=== PATIENT | female | born 1930 | race Caucasian/White ===

== ENCOUNTER 2016-06-09 13:49 | Emergency (ER) | payer OTHER ==
[~2016-06-09] VITALS: Ht 154.9 cm; Wt 79.8 kg
[~2016-06-09 13:49] MED LIST: ALDACTONE50 M1 PO; AUGMENTIN 875 M1 TAB PO; LEVAQUIN500 MG PO; TESSALON PERLE100 M1 PO
[2016-06-09 14:07] VITALS: BP 162/81
--- NOTE | 2016-06-09 14:35 | ED INFLUENZA/URI COMPLAINT ---
History of Present Illness General Chief Complaint: Upper Respiratory Sx/Fever Stated Complaint: COUGH,CONGESTION,SORE THROAT Source: patient, family Exam Limitations: no limitations Vital Signs & Intake/Output Vital Signs & Intake/Output Vital Signs Date Time Temp Pulse Resp B/P Pulse O2 O2 Flow FiO2 Ox Delivery Rate 06/09 1407 99.4 106 20 162/81 93 Room Air Allergies Coded Allergies: spironolactone (Severe, HIVES FROM GENERIC VERSION ONLY 08/06/15) erythromycin base (UNKNOWN 08/06/15) nifedipine (UNKNOWN 08/06/15) Uncoded Allergies: INTEX (UNKNOWN 03/06/13) Reconcile Medications Albuterol Sulfate (Proair Hfa) 90 MCG HFA.AER.AD 2 PUF INH Q4-6 PRN PRN WHEEZING Benzonatate (Tessalon Perle) 100 MG CAPSULE 1 TAB PO TID COUGH Levofloxacin (Levaquin) 500 MG TABLET 1 TAB PO DAILY BRONCHITIS Prednisone 20 MG TABLET 2 TAB PO DAILY BRONCHITIS Spironolactone (Aldactone) 50 MG TABLET 1 TAB PO DAILY UNKNOWN (Reported) Triage Note: 86 Y/O FEMALE C/O SOB X 1 WEEK; STATES SHE HAS A "DRY COUGH" AND "ITS HARD TO TAKE A DEEP BREATH BECAUSE ITS SO DRY". C/O "CLEAR" DRAINAGE FROM NOSE AND NASAL CONGESTION. PT REPORTS HX BRONCHITIS AND STATES "THIS IS THE SAME". SAT 93% RA, NO DISTRESS NOTED. TEMP 99.4 Triage Nurses Notes Reviewed? yes HPI: 86-year-old female here with her daughter with complaints of 3 or 4 days of nasal congestion, clear rhinorrhea, dry cough. States it is getting worse, she has pressure in her sinuses. Her daughter who is with her also feel sick with same and positive sick contact with her great-grandsons having a upper respiratory illness as well. Patient states that she gets rhonchi this/ sinusitis every year and states she takes an antibiotic for this and symptoms resolved shortly. She has complaints of mild chills this morning and mild generalized malaise. She denies any known fever, she has no production with the cough, she has a good appetite. She has no chest pain. (BETTE AMIN,SHARON) Past History Travel History Traveled to [place] past 21 day No Medical History Any Pertinent Medical History? see below for history Neurological: NONE EENT: NONE Cardiovascular: hypertension Respiratory: NONE Gastrointestinal: NONE Hepatic: NONE Renal: NONE Musculoskeletal: SCOLIOSIS Psychiatric: NONE Endocrine: DM Surgical History Surgical History: N Psychosocial History What is your primary language Argentine Tobacco Use: Never used Family History Hx Contributory? No (SHARON PICKARD) Review of Systems Review of Systems Constitutional: Reports: see HPI. EENTM: Reports: see HPI. Respiratory: Reports: see HPI. Cardiovascular: Reports: no symptoms. GI: Reports: no symptoms. Genitourinary: Reports: no symptoms. Musculoskeletal: Reports: no symptoms. Skin: Reports: no symptoms. Neurological/Psychological: Reports: no symptoms. Hematologic/Endocrine: Reports: no symptoms. Immunologic/Allergic: Reports: no symptoms. All Other Systems: Reviewed and Negative (SHARON PICKARD) Physical Exam Physical Exam General Appearance: well developed/nourished Ears, Nose, Throat: POSITIVE CLEAR RHINORRHEA, TENDERNESS OF THE MAXILLARY SINUS pHARYNX IS CLEAR, POSITIVE POSTNASAL DRIP Comments: Well-developed well-nourished no apparent distress. HEENT: Atraumatic, extraocular motion intact Neck: Supple, no lymphadenopathy Back: Nontender Respiratory: No respiratory distress Lungs with diminished breath sounds bilaterally. Heart: Regular rate and rhythm no murmur. Extremities: Chronic bilateral lower extremity edema, full range of motion Neuro: Alert and oriented x3 Psych: Mood affect normal, normal memory normal judgment. Skin: Warm and dry, no rash on exposed skin Core Measures Severe Sepsis Present: No Septic Shock Present: No (SHARON PICKARD) Progress Differential Diagnosis: influenza, meningitis, neutropenia, otitis, pneumonia, pharyngitis, sinusitis Plan of Care: Orders Procedure Date/time Status XRY-CHEST XRAY, PA AND LATERAL 06/09 1419 Active Diagnostic Imaging: Viewed by Me: Radiology Read. Discussed w/RAD: Radiology Read. CXR Impression: PATIENT: YVAN DELUCA PRESENT AGE: 86 PATIENT ACCOUNT NO: [id number] : 31 LOCATION: [facility] ORDERING PHYSICIAN: SHARON AMIN SERVICE DATE: 06/09/16 EXAM TYPE: RAD - XRY-CHEST XRAY, PA AND LATERAL EXAMINATION: XR CHEST CLINICAL INFORMATION: Cough. Bronchitis. COMPARISON: CXR from 06/19/2014 and 09/09/2015 TECHNIQUE: PA and lateral views of the chest were obtained. FINDINGS: The medial left lower lobe remains difficult to evaluate due to the severe dextroscoliosis. A linear opacity adjacent to the pericardiac fat pad is compatible with atelectasis. The lateral radiograph shows blunted appearance of the left posterior costophrenic sulcus, unchanged compared to 06/19/2014, and likely related to the spinal deformity. Cardiac silhouette is borderline enlarged. There is atherosclerotic calcification of the aorta. IMPRESSION: 1. Severe dextroscoliosis of the thoracic spine. 2. Mild atelectasis at left lung base, similar appearance compared to 06/19/2014 and 09/09/2015. No acute cardiopulmonary findings. DICTATED BY: JARRETT WILKINS MD DATE/TIME DICTATED:06/09/161508 ASIAN STUDIES PROFESSOR:RICHARD Initial ED EKG: none Comments: Chest x-ray is unremarkable for infiltrate however after reviewing myself, it is a limited study due to her severe scoliosis and I am concerned for possible early pneumonia. At the very least she has a sinusitis and we'll treat her with antibiotics, she requires close follow-up with primary care doctor or returning here with worsening symptoms (SHARON PICKARD) Departure Departure Disposition: HOME OR SELF CARE Condition: Stable Clinical Impression Primary Impression: Bronchitis Referrals: COMPA DIEZ DO (PCP/Family) Referred to [facility] as new patient No Additional Instructions: TAKE ANTIBIOTICS DIRECTED. USE INHALER FOR WHEEZING AND SHORTNESS OF BREATH. TAKE PREDNISONE FOR LUNG INFLAMMATION. RETURN IF YOU ARE FEELING WORSENING FLU LIKE ILLNESS, FEVER OR DIFFICLUTY BREATHING. FOLLOW UP WITH YOUR DOCTOR THIS WEEK FOR RE EVALUATION. Departure Forms: Customer Survey General Discharge Information Prescriptions: Current Visit Scripts Levofloxacin (Levaquin) 1 TAB PO DAILY #7 TAB Albuterol Sulfate (Proair Hfa) 2 PUF INH Q4-6 PRN PRN WHEEZING #1 INHAL Prednisone 2 TAB PO DAILY #10 TAB (SHARON PICKARD) PA/PLSQL DEVELOPER Co-Sign Statement Statement: ED Attending supervision documentation- [X] I saw and evaluated the patient. I have also reviewed all the pertinent lab results and diagnostic results. I agree with the findings and the plan of care as documented in the PA's/PLSQL DEVELOPER's documentation. [X] I have reviewed the ED Record and agree with the PA's/PLSQL DEVELOPER's documentation. [] Additions or exceptions (if any) to the PAs/PLSQL DEVELOPER's note and plan are summarized below: [] (CHASITY GARRISON,ANTONIA)
--- NOTE | 2016-06-09 15:20 | RADIOLOGY REPORT ---
EXAMINATION: XR CHEST CLINICAL INFORMATION: Cough. Bronchitis. COMPARISON: CXR from 06/19/2014 and 09/09/2015 TECHNIQUE: PA and lateral views of the chest were obtained. FINDINGS: The medial left lower lobe remains difficult to evaluate due to the severe dextroscoliosis. A linear opacity adjacent to the pericardiac fat pad is compatible with atelectasis. The lateral radiograph shows blunted appearance of the left posterior costophrenic sulcus, unchanged compared to 06/19/2014, and likely related to the spinal deformity. Cardiac silhouette is borderline enlarged. There is atherosclerotic calcification of the aorta. IMPRESSION: 1. Severe dextroscoliosis of the thoracic spine. 2. Mild atelectasis at left lung base, similar appearance compared to 06/19/2014 and 09/09/2015. No acute cardiopulmonary findings.
[2016-06-09] MEDS ORDERED: LEVAQUIN500 M1 PO (15:35)
[2016-06-09] MEDS ORDERED: PROAIR HFA8.5 GM INH (15:35)
[2016-06-09] MEDS ORDERED: PREDNISONE20 M1 PO (15:35)
== END 2016-06-09 15:53 ==
LOC: ERH 13:49
DX: J40 Bronchitis, not specified as acute or chronic (principal); J02.9 Acute pharyngitis, unspecified

== ENCOUNTER 2016-08-08 16:20 | Emergency (ER) | payer OTHER ==
[~2016-08-08] VITALS: Ht 152.4 cm; Wt 79.8 kg
[~2016-08-08 16:20] MED LIST changes: +LEVAQUIN500 M1 PO; +PREDNISONE20 M1 PO; +PROAIR HFA8.5 GM INH
[2016-08-08 17:26] LABS: ABSOLUTE BASOPHIL COUNT 0 /CUMM (0.0-0.2); ABSOLUTE EOSINOPHIL COUNT 0.1 /CUMM (0.0-0.7); ABSOLUTE GRANULOCYTE CT 2.6 /CUMM (1.4-6.5); ABSOLUTE LYMPH COUNT 1.3 /CUMM (1.2-3.4); ABSOLUTE MONOCYTE COUNT 1.1 /CUMM (0.10-0.60); BASOPHIL % 0.4 % (0.0-2.0); EOSINOPHIL % 1.1 % (0-5); GRANULOCYTE % 50.5 % (42.2-75.2); MEAN CORPUSCULAR HGB 29.5 PG (27.0-31.0); MEAN CORPUSCULAR HGB CONC 33.3 G/DL (33.0-37.0); MEAN CORPUSCULAR VOLUME 88.8 FL (81.0-99.0); MEAN PLATELET VOLUME 9.2 FL (7.4-10.4); PLATELET COUNT 209 /CUMM (130-400); RBC DISTRIBUTION WIDTH 13.3 % (11.5-14.5); RED BLOOD CELL CT 4.62 /CUMM (4.20-5.40); WHITE BLOOD CELL COUNT 5.1 /CUMM (4.8-10.8)
[2016-08-08 17:33] LABS: PT 11.4 SEC (9.4-12.5)
--- NOTE | 2016-08-08 17:48 | ED DYSPNEA/ASTHMA COMPLAINT ---
History of Present Illness General Chief Complaint: Dyspnea (COPD, CHF, Other) Stated Complaint: SOB, UNABLE TO WALK, FLUTTERING IN HER CHEST Source: patient, old records Exam Limitations: no limitations Vital Signs & Intake/Output Vital Signs & Intake/Output Vital Signs Date Time Temp Pulse Resp B/P Pulse O2 O2 Flow FiO2 Ox Delivery Rate 08/08 2048 115 22 88 Room Air Room Air 08/08 2046 97.5 99 18 180/74 96 Room Air Room Air 08/08 1920 98 Nasal 5.0L Cannula 08/08 185 97.0 112 179/77 08/08 1852 98 Nasal 4.0L Cannula 08/08 1755 88 Room Air 08/08 1754 95 Nasal 2.0L Cannula 08/08 1731 97.0 108 177/77 08/08 1652 99.0 103 192/86 95 Nasal 3.0L Cannula 08/08 1626 98.7 104 20 188/70 93 Room Air Triage Note: TRIAGE: PT TO ER WITH DAUGHTER C/C CHEST HEAVINESS, PRODUCTIVE COUGH BUT UNSURE OF COLOR OF PHLEGM. COUGH X 1 WK, CHEST HEAVINESS X 2 DAYS. COUGH WORSE IN LAST 2 DAYS. DENIES FEVERS. Triage Nurses Notes Reviewed? yes HPI: Patient presents for evaluation of dyspnea. Dyspnea was gradual in onset and has been worsening 1 week. (CARMEN GARRISON,PALMER Gee) Allergies Coded Allergies: spironolactone (Severe, THROAT TIGHTENS FROM GENERIC VERSION ONLY 08/08/16) erythromycin base (UNKNOWN 08/08/16) nifedipine (UNKNOWN 08/08/16) Uncoded Allergies: INTEX (UNKNOWN 03/06/13) Reconcile Medications Albuterol Sulfate (Proair Hfa) 90 MCG HFA.AER.AD 2-4 PUF INH Q4-6 PRN PRN shortness of breath Levofloxacin (Levaquin) 500 MG TABLET 1 TAB PO DAILY bronchitis Multivit-Min/Iron/Folic/Lutein (Centrum Silver Women Tablet) 8 MG IRON-400 MCG- 300 MCG TABLET 1 TAB PO DAILY SUPPLEMENT (Reported) Spironolactone (Aldactone) 50 MG TABLET 1 TAB PO DAILY BP (Reported) (KARIME GARRISON,EDUARDO) Past History Travel History Traveled to [place] past 21 day No Medical History Any Pertinent Medical History? see below for history Neurological: NONE EENT: NONE Cardiovascular: hypertension Respiratory: NONE Gastrointestinal: NONE Hepatic: NONE Renal: NONE Musculoskeletal: SCOLIOSIS Psychiatric: NONE Endocrine: DM Blood Disorders: NONE Cancer(s): NONE HAND QUILTER/Reproductive: NONE Surgical History Surgical History: N Psychosocial History What is your primary language Ma[place] Tobacco Use: Never used ETOH Use: denies use Illicit Drug Use: denies illicit drug use Family History Hx Contributory? No (CARMEN GARRISON,PALMER Gee) Review of Systems Review of Systems Constitutional: Reports: no symptoms. EENTM: Reports: no symptoms. Respiratory: Reports: see HPI. Cardiovascular: Reports: no symptoms. GI: Reports: no symptoms. Genitourinary: Reports: no symptoms. Musculoskeletal: Reports: no symptoms. Skin: Reports: no symptoms. Neurological/Psychological: Reports: no symptoms. Hematologic/Endocrine: Reports: no symptoms. Immunologic/Allergic: Reports: no symptoms. All Other Systems: Reviewed and Negative (CARMEN GARRISON,PALMER Gee) Physical Exam Physical Exam Respiratory: SEE BELOW Comments: Gen.: Well-nourished, well-developed, no acute respiratory distress. Head: Normocephalic, atraumatic. Eyes: Normal inspection bilaterally Ears: Normal inspection bilaterally Nose: Normal inspection Throat/mouth : Moist mucosa Neck: Supple, full range of motion, no goiter Heart: Regular rate and rhythm, no murmurs rubs or gallops Lungs: Scattered wheezes Rales and rhonchi with normal entry over the left chest but severely decreased air entry over the right Chest: Nontender Back: Normal range of motion Abdomen: Soft, nontender, nondistended, normal bowel sounds Extremities: 1-2+ bilateral pitting edema of the lower extremities. Mild tenderness of the anterior legs. Neurologic: Cranial nerves grossly intact, speech is clear Skin: warm and dry Psychiatric: Calm, cooperative, no apparent delusions or hallucinations Core Measures ACS in differential dx? No Severe Sepsis Present: No Septic Shock Present: No (CARMEN GARRISON,PALMER Gee) Progress Differential Diagnosis: bronchitis, CHF, COPD, pneumothorax Plan of Care: Orders Procedure Date/time Status Add-on Test (ER Only) 08/08 1747 Active TROPONIN LEVEL 08/08 1706 Complete PROTHROMBIN TIME 08/08 1706 Complete COMPREHENSIVE METABOLIC PANEL 08/08 1706 Complete CBC WITHOUT DIFFERENTIAL 08/08 170 Complete EKG 08/08 1622 Active Current Medications Sig/Brad Start time Last Medication Dose Stop Time Status Admin Ciprofloxacin 500 MG ONCE ONE 08/08 2114 UNVr (Cipro) 08/09 2115 Laboratory Tests 08/08/16 1711: Anion Gap 11, Estimated GFR > 60, BUN/Creatinine Ratio 22.9, Glucose 220 H, Calcium 9.7, Total Bilirubin 0.6, AST 34, ALT 36, Alkaline Phosphatase 74, Troponin I < 0.01, Total Protein 7.6, Albumin 4.2, Globulin 3.4, Albumin/ Globulin Ratio 1.2, PT 11.4, INR 1.09, CBC w Diff NO MAN DIFF REQ, RBC 4.62, MCV 88.8, MCH 29.5, RDW 13.3, MPV 9.2, Gran % 50.5, Lymphocytes % 26.1, Monocytes % 21.9 H, Eosinophils % 1.1, Basophils % 0.4, Absolute Granulocytes 2.6, Absolute Lymphocytes 1.3, Absolute Monocytes 1.1 H, Absolute Eosinophils 0.1, Absolute Basophils 0, PUBS MCHC 33.3 Diagnostic Imaging: Discussed w/RAD: Radiology Read. CXR Impression: PATIENT: YVAN DELUCA PRESENT AGE: 86 PATIENT ACCOUNT NO: [id number] : 31 LOCATION: [facility] ORDERING PHYSICIAN: PALMER MORALES MD SERVICE DATE: 08/08/16 EXAM TYPE: RAD - XRY-PORTABLE CHEST XRAY EXAMINATION: XR PORTABLE CHEST CLINICAL INFORMATION: Wheezes, rales and rhonchi. COMPARISON: 06/09/2016 TECHNIQUE: Portable AP view of the chest was obtained. FINDINGS: Cardiac leads overlie the chest. Scoliotic curvature of the spine is again noted which limits the evaluation. Left basilar linear atelectasis is seen. No additional consolidation. No edema or significant effusion. No pneumothorax. The cardiomediastinal silhouette is unchanged, with a calcified aorta. IMPRESSION: Prominent dextroscoliosis which limits the evaluation. Left basilar linear atelectasis. No additional focal finding identified. DICTATED BY: CHELSEA PORRAS MD DATE/TIME DICTATED:08/08/161814 DIRECTOR OF AGRICULTURE:RICHARD DATE/TIME TRANSCRIBED:08/08/161814 CONFIDENTIAL, DO NOT COPY WITHOUT APPROPRIATE AUTHORIZATION. <Electronically signed in Other Vendor System> SIGNED BY: CHELSEA PORRSA MD 08/08/161818 Initial ED EKG: NSR, NO DIAGNOSTIC st SEGMENT CHANGES Comments: 08/08/2016 7:20:39 PM patient's cased signed over to Dr. Schaffer. Nebulizer treatment pending. Clinical impression asthmatic bronchitis/COPD secondary to viral illness. (CARMEN GARRISON,PALMER Gee) Comments: Increased work of breathing with desaturation while walking still insistent on returning home against my recommendation. (EDUARDO SCHAFFER MD) Departure Departure Condition: Stable Referrals: COMPA DIZE DO (PCP/Family) Departure Forms: Customer Survey General Discharge Information (CARMEN GARRISON,PALMER Gee) Departure Time of Disposition: 2100 Disposition: HOME OR SELF CARE Clinical Impression Primary Impression: Acute asthmatic bronchitis Prescriptions: Current Visit Scripts Levofloxacin (Levaquin) 1 TAB PO DAILY #7 TAB Albuterol Sulfate (Proair Hfa) 2-4 PUF INH Q4-6 PRN PRN shortness of breath #1 INHAL (EDUARDO SCHAFFER MD) Critical Care Note Critical Care Note Critical Care Time: non-applicable (EDUARDO SCHAFFER MD)
--- NOTE | 2016-08-08 18:19 | RADIOLOGY REPORT ---
EXAMINATION: XR PORTABLE CHEST CLINICAL INFORMATION: Wheezes, rales and rhonchi. COMPARISON: 06/09/2016 TECHNIQUE: Portable AP view of the chest was obtained. FINDINGS: Cardiac leads overlie the chest. Scoliotic curvature of the spine is again noted which limits the evaluation. Left basilar linear atelectasis is seen. No additional consolidation. No edema or significant effusion. No pneumothorax. The cardiomediastinal silhouette is unchanged, with a calcified aorta. IMPRESSION: Prominent dextroscoliosis which limits the evaluation. Left basilar linear atelectasis. No additional focal finding identified.
[2016-08-08] MEDS ORDERED: CENTRUM SILVER1 EACH PO (20:34)
[2016-08-08] MEDS ORDERED: ALDACTONE50 M1 PO (20:34)
[2016-08-08 20:47] VITALS: BP 180/74
[2016-08-08] MEDS ORDERED: LEVAQUIN500 M1 PO (21:05)
[2016-08-08] MEDS ORDERED: PROAIR HFA8.5 GM INH (21:05)
== END 2016-08-08 21:34 ==
LOC: ERH 16:20
PROVIDERS: Emergency Medicine
DX: J45.909 Unspecified asthma, uncomplicated (principal); I10 Essential (primary) hypertension
CPT/HCPCS: 1263; 93005; 93010